=== PATIENT | female | born 1955 | race Caucasian/White ===

== ENCOUNTER 2018-12-01 18:30 | Emergency (ER) | payer OTHER ==
[~2018-12-01] VITALS: Ht 152.4 cm; Wt 57.5 kg
[2018-12-01 18:32] VITALS: Ht 152.4 cm; Wt 57.5 kg
[2018-12-01] MEDS ORDERED: KETOROLAC 30 MG INJ IM STA (18:49)
[2018-12-01] MEDS ORDERED: SOD CHLORIDE 0.9% 500 ML IV STA (19:35)
[2018-12-01] MEDS ORDERED: HYDROmorphONE 1 MG/ML SYG IV STA (19:35)
[2018-12-01] MEDS ORDERED: ONDANSETRON 4 MG INJ ONE (19:37)
[2018-12-01] MEDS ORDERED: OXYC-279 PO (19:55)
[2018-12-01] MEDS ORDERED: IBUP-1561 PO (19:55)
[2018-12-01 20:20] VITALS: BP 116/59; PULSE 78; RESP 20
--- NOTE | 2018-12-01 23:17 | ERD ---
ER Documentation Chief Complaint Chief Complaint Pt reports trip and fall onto L elbow, pt has deformity, cap refill <2 secs HPI 63-year-old woman presenting with left elbow pain and swelling status post mechanical fall forward when her foot struck uneven concrete. She denies paresis or paresthesias, there was no head or neck injury she denies headache or blurry vision, no complaints of chest pain or shortness of breath. ROS All systems reviewed and are negative except as per history of present illness. Medications Home Meds Active Scripts Oxycodone HCl/Acetaminophen (Percocet 5-325 mg Tablet) 1 Each Tablet, 1 EACH PO TID PRN for PAIN LEVEL 6-10, #12 TAB Prov:YENIFER GOLDEN MD 12/01/18 Ibuprofen* (Motrin*) 400 Mg Tab, 400 MG PO Q8 PRN for PAIN AND/OR INFLAMMATION, #60 TAB Prov:YENIFER GOLDEN MD 12/01/18 Allergies Allergies: Coded Allergies: No Known Allergy (Unverified , 12/01/18) PMhx/Soc None Medical and Surgical Hx: pt denies Medical Hx, pt denies Surgical Hx Hx Alcohol Use: No Hx Substance Use: No Hx Tobacco Use: No Smoking Status: Never smoker Physical Exam Vitals Vital Signs Date Temp Pulse Resp B/P (MAP) Pulse Ox O2 O2 Flow FiO2 Time Delivery Rate 12/01/18 78 20 116/59 99 Room Air 20:20 (78) 12/01/18 82 19 116/65 98 Room Air 19:25 (82) 12/01/18 96.5 82 20 147/85 98 18:32 (105) Physical Exam Const: Moderate discomfort, well-developed well-nourished elderly woman, afe brile HEENT: Normocephalic atraumatic, cervical spine without step-off deformity or tenderness Resp: Clear to auscultation bilaterally Cardio: Regular rate and rhythm, no murmurs Skin: No petechiae or rashes superficial posterior left elbow hematoma and mild ecchymosis, no lacerations Back: No midline or flank tenderness Ext: No cyanosis, or edema. Soft tissue contusion and tenderness to the left elbow complex, distal pulses equal bilateral Neur: Awake and alert x3, gait normal, Sensation to the axillary, median, ulnar, radial nerves are intact and equal bilaterally Results 24 hrs Current Medications Medications Dose Sig/Rudi Start Time Status Last (Trade) Ordered Route PRN Stop Time Admin Dose Reason Admin Ketorolac 30 mg ONCE STAT 12/01/18 DC 12/01/18 Tromethamine IM 18:49 19:01 (Toradol) 12/01/18 18:51 Sodium 500 ml @ Q1H STAT 12/01/18 DC 12/01/18 Chloride 500 mls/hr IV 19:35 19:39 12/01/18 20:34 1 mg ONCE STAT 12/01/18 DC 12/01/18 Hydromorphone IV 19:35 19:39 HCl 12/01/18 19:36 (Dilaudid) Ondansetron 4 mg STK-MED 12/01/18 DC HCl (Zofran ONCE .ROUTE 19:37 Inj) 12/01/18 19:38 Procedures/MDM I administered Toradol 30 mg IM x1. Three-view x-ray of the left elbow performed, read by me revealed bilateral epicondyle fracture of the left humerus, no anterior posterior fat pad sign. No dislocation noted Three-view x-ray of the left humerus performed, read by me there is medial l ateral epicondyle fractures, no other fracture dislocation noted left upper extremity was placed IV line was established patient was given 1 L normal saline IV and hydromorphone 1 mg IV for continued pain control. In a posterior long-arm splint with the elbow flexed, splint was secured with Ten bandage and sling. Splint Assessment: Neurovascularly intact post splint placement with good fit. I spoke to orthopedic surgeon on-call Dr. Musa guarding the patient's presentation, symptomatology, and x-ray findings. In fact reviewed the x-rays and recommended outpatient management and kindly agreed to see the patient in his office. Patient will not likely require surgery. Patient feels much better at this time, and vital signs are normal, symptoms have improved. I did give strict instructions to return to the ED if symptoms continue or worsen, patient will otherwise follow-up with primary care physician. Patient understood instructions and agreed to plan. Disclaimer: Inadvertent spelling and grammatical errors are likely due to EHR/dictation software use and do not reflect on the overall quality of patient care. Also, please note that the electronic time recorded on this note does not necessarily reflect the actual time of the patient encounter. Departure Diagnosis: Primary Impression: Elbow fracture Encounter type: initial encounter Fracture type: closed Laterality: left Qualified Codes: S42.402A - Unspecified fracture of lower end of left humerus, initial encounter for closed fracture Condition: Good Patient Instructions: Elbow Fracture Referrals: [facility] (PCP) FABIOLA MUSA MD, DAVID MD December 01, 2018 23:16
== END 2018-12-01 20:20 | disposition home or self-care (01) ==
LOC: E/R 18:30
DX: S42.442A Displaced fracture (avulsion) of medial epicondyle of left humerus, initial encounter for closed fracture (principal); W01.0XXA Fall on same level from slipping, tripping and stumbling without subsequent striking against object, initial encounter; Y92.89 Other specified places as the place of occurrence of the external cause
CPT/HCPCS: 73060; 73080; 96372; 96374; J1170; J1885; J2405; J7040; Z7502